=== PATIENT | female | born 1970 | race African-American/Black ===

== ENCOUNTER → 2017-06-24 | Outpatient (CLI) | payer BC ==
[2017-06-24 14:46] LABS: BASO % 1 % (0-3); EOS # 0.1 x10^3/uL (0.0-0.7); EOS % 2 % (0-3); HEMATOCRIT 24.1 % (36.0-47.0); LYMPH # 2.6 x10^3/uL (1.0-4.8); LYMPH % 41 % (24-48); MEAN CORPUSCULAR HEMOGLOBIN 16 pg (25-35); MEAN CORPUSCULAR HGB CONC 29 g/dL (31-37); MEAN CORPUSCULAR VOLUME 56 fL (79-100); MONO # 0.2 x10^3/uL (0.0-1.1); MONO % 4 % (0-9); NEUT # 3.3 x10^3uL (1.8-7.7); NEUT % 52 % (31-73); PLATELET COUNT 211 x10^3/uL (140-400); RED BLOOD COUNT 4.33 x10^6/uL (3.50-5.40); RED CELL DISTRIBUTION WIDTH 21.4 % (11.5-14.5); WHITE BLOOD COUNT 6.3 x10^3/uL (4.0-11.0)
[2017-06-24 14:50] LABS: ADD MAN DIFF? YES; HEMOGLOBIN 6.9 g/dL (12.0-15.5)
[2017-06-24 15:21] LABS: ALBUMIN 4.3 g/dL (3.4-5.0); ALBUMIN/GLOBULIN RATIO 1.2 (1.0-1.7); ALK PHOS 58 U/L (46-116); ALT (SGPT) 16 U/L (14-59); ANION GAP 12 (6-14); AST (SGOT) 14 U/L (15-37); BLOOD UREA NITROGEN 11 mg/dL (7-20); BUN/CREATININE RATIO 18 (6-20); CALCIUM 8.5 mg/dL (8.5-10.1); CARBON DIOXIDE 24 mmol/L (21-32); CHLORIDE 106 mmol/L (98-107); CREATININE 0.6 mg/dL (0.6-1.0); GFR 129.7; GLUCOSE 89 mg/dL (70-99); POTASSIUM 3.6 mmol/L (3.5-5.1); SODIUM 142 mmol/L (136-145); TOTAL BILIRUBIN 0.2 mg/dL (0.2-1.0); TOTAL PROTEIN 7.9 g/dL (6.4-8.2)
[2017-06-24 18:09] LABS: % EOS 4 % (0-5); % LYMPHS 37 % (24-48); % MONOS 6 % (0-10); % SEGS 53 % (35-66); PLT ESTIMATE ADEQUATE (ADEQUATE)
[2017-06-24 18:10] LABS: ANISOCYTOSIS MOD; HYPOCHROMIA MARKED; MICROCYTOSIS MARKED; POLYCHROMASIA SLIGHT; SCHISTOCYTES OCC
== END | disposition home or self-care (01) ==
LOC: SURGPAT 14:08
DX: Z01.818 Encounter for other preprocedural examination (principal)
CPT/HCPCS: 36415; 71046; 80053; 85007; 85025

== ENCOUNTER 2017-07-02 05:41 | Observation (INO) | payer BC ==
[2017-07-02] MEDS: IV RINGERS,LACTATED 1000ML 1,000 ML IV (06:36)
[2017-07-02] MEDS ORDERED: METHYLENE BLUE 1% 10 ML VIAL. (06:42)
[2017-07-02] MEDS ORDERED: ESTROGENS, CONJ VAGINAL CREAM 30GM TUBE. (06:42)
[2017-07-02] MEDS ORDERED: LIDOCAINE 1% PF 2 ML VIAL. ID (07:00)
[2017-07-02] MEDS ORDERED: ONDANSETRON PF 4 MG/2 ML VIAL. IV ×2 (07:00→10:00)
[2017-07-02] MEDS ORDERED: fentaNYL PF VIAL 100 MCG/2 ML VIAL IV (07:00)
[2017-07-02] MEDS ORDERED: PROCHLORPERAZINE 10 MG/2 ML VIAL. IV (07:00)
[2017-07-02] MEDS ORDERED: ROCURONIUM 50 MG/5 ML VIAL. (07:04)
[2017-07-02] MEDS ORDERED: PROPOFOL 20 ML IV (07:04)
[2017-07-02] MEDS ORDERED: SUCCINYLCHOLINE 200 MG/10 ML VIAL. (07:04)
[2017-07-02] MEDS ORDERED: LIDOCAINE 1% PF 5 ML VIAL. (07:04)
[2017-07-02] MEDS ORDERED: fentaNYL PF VIAL 100 MCG/2 ML VIAL ×2 (07:04→10:13)
[2017-07-02 07:10] LABS: NEG OBC UR NEG; POS OBC UR POS; U PREG PATIENT NEGATIVE (NEG)
[2017-07-02 07:20] LABS: BASO # 0.1 x10^3/uL (0.0-0.2); BASO % 1 % (0-3); EOS # 0.1 x10^3/uL (0.0-0.7); EOS % 2 % (0-3); HEMATOCRIT 29.7 % (36.0-47.0); HEMOGLOBIN 9.4 g/dL (12.0-15.5); LYMPH # 2.1 x10^3/uL (1.0-4.8); LYMPH % 43 % (24-48); MEAN CORPUSCULAR HEMOGLOBIN 20 pg (25-35); MEAN CORPUSCULAR HGB CONC 32 g/dL (31-37); MEAN CORPUSCULAR VOLUME 62 fL (79-100); MONO # 0.3 x10^3/uL (0.0-1.1); MONO % 5 % (0-9); NEUT # 2.4 x10^3uL (1.8-7.7); NEUT % 49 % (31-73); PLATELET COUNT 310 x10^3/uL (140-400); RED BLOOD COUNT 4.82 x10^6/uL (3.50-5.40); RED CELL DISTRIBUTION WIDTH 30.6 % (11.5-14.5); WHITE BLOOD COUNT 4.9 x10^3/uL (4.0-11.0)
[2017-07-02] MEDS: SCOPOLAMINE 1.5MG PATCH. TD (07:27)
[2017-07-02 07:31] LABS: ADD MAN DIFF? YES
[2017-07-02] MEDS ORDERED: DESFLURANE 61 TO 120 MINUTES IH (07:50)
[2017-07-02] MEDS ORDERED: FAMOTIDINE 20 MG/2 ML VIAL (07:50)
[2017-07-02] MEDS ORDERED: DEXAMETHASONE SOD PHOS 20 MG/5 ML VIAL. (07:50)
[2017-07-02] MEDS ORDERED: ONDANSETRON PF 4 MG/2 ML VIAL. (07:50)
[2017-07-02] MEDS: BUPIVACAINE MPF 0.25% 30 ML VIAL. (07:59)
[2017-07-02] MEDS ORDERED: NEOSTIGMINE 10 MG/10 ML VIAL. (08:12)
[2017-07-02] MEDS ORDERED: GLYCOPYRROLATE 1 MG/5 ML VIAL. (08:12)
[2017-07-02] MEDS ORDERED: PHENYLEPHRINE in 0.9% NACL PF 1 MG/10 ML SYRINGE. IV (08:37)
[2017-07-02] MEDS ORDERED: MAG HYDROX/ALUMINUM HYD/SIMETH 30 ML ORAL.SUSP PO (10:00)
[2017-07-02] MEDS ORDERED: diphenhydrAMINE 50 MG/ML VIAL IV (10:00)
[2017-07-02] MEDS ORDERED: NALOXONE 0.4 MG/ML VIAL. IV (10:00)
[2017-07-02] MEDS ORDERED: 0.9 % SODIUM CHLORIDE 10 ML DISP.SYRIN. IV (10:00)
[2017-07-02] MEDS ORDERED: MAGNESIUM HYDROXIDE 2,400 MG/30 ML ORAL.SUSP. PO (10:00)
[2017-07-02] MEDS ORDERED: oxyCODONE/APAP 5/325 1 TAB TABLET PO (10:00)
[2017-07-02] MEDS ORDERED: CALCIUM CARBONATE 500 MG TAB.CHEW PO (10:00)
[2017-07-02] MEDS ORDERED: LACTULOSE 20 GM/30 ML SOLUTION. PO (10:00)
[2017-07-02] MEDS ORDERED: ZOLPIDEM 5 MG TABLET. PO (10:00)
[2017-07-02] MEDS ORDERED: diphenhydrAMINE HCL 25 MG CAPSULE PO (10:00)
[2017-07-02] MEDS ORDERED: MORPHINE SULFATE 2 MG/ML DISP.SYRIN. IV (10:00)
[2017-07-02] MEDS ORDERED: SIMETHICONE 80 MG TAB.CHEW PO (10:00)
[2017-07-02] MEDS: fentaNYL PF VIAL 100 MCG/2 ML VIAL IV ×2 (10:21→11:01)
[2017-07-02 10:42] LABS: HEMATOCRIT 27.9 % (36.0-47.0); HEMOGLOBIN 8.2 g/dL (12.0-15.5); MEAN CORPUSCULAR HEMOGLOBIN 19 pg (25-35); MEAN CORPUSCULAR HGB CONC 30 g/dL (31-37); MEAN CORPUSCULAR VOLUME 64 fL (79-100); PLATELET COUNT 307 x10^3/uL (140-400); RED BLOOD COUNT 4.37 x10^6/uL (3.50-5.40); RED CELL DISTRIBUTION WIDTH 29.8 % (11.5-14.5); WHITE BLOOD COUNT 12.2 x10^3/uL (4.0-11.0)
[2017-07-02 12:38] LABS: % EOS 3 % (0-5); % LYMPHS 32 % (24-48); % MONOS 9 % (0-10); % SEGS 56 % (35-66); HYPOCHROMIA PRESENT; MICROCYTOSIS PRESENT; PLT ESTIMATE ADEQUATE (ADEQUATE)
[2017-07-02 12:39] LABS: OVALOCYTES PRESENT; POLYCHROMASIA PRESENT
[2017-07-02] MEDS: KETOROLAC 30 MG/ML INJ. IV ×2 (13:34→19:33)
[2017-07-02] MEDS: HYDROcodone/APAP 5/325MG 1 TAB TABLET PO ×2 (15:12→19:34)
[2017-07-03 05:00] LABS: ANION GAP 11 (6-14); BLOOD UREA NITROGEN 7 mg/dL (7-20); CALCIUM 7.9 mg/dL (8.5-10.1); CARBON DIOXIDE 24 mmol/L (21-32); CHLORIDE 105 mmol/L (98-107); CREATININE 0.7 mg/dL (0.6-1.0); GFR 108.5; GLUCOSE 87 mg/dL (70-99); POTASSIUM 3.6 mmol/L (3.5-5.1); SODIUM 140 mmol/L (136-145)
[2017-07-03 05:04] LABS: HEMATOCRIT 23.7 % (36.0-47.0)
[2017-07-03] MEDS: FERROUS SULFATE 325 MG TABLET. PO ×2 (08:02→09:00)
== END 2017-07-03 10:08 | disposition home or self-care (01) ==
LOC: SURG 05:41 → 3 NORTH 10:07
DX: D25.1 Intramural leiomyoma of uterus (principal); Z98.51 Tubal ligation status; D64.9 Anemia, unspecified
CPT/HCPCS: 36415; 80048; 81025; 85007; 85014; 85025; 85027; 86850; 86900; 86901; 88307; 96374; 96376; C1769; G0378; G0379; J0330; J0690; J1100; J1885; J2370; J2405; J2704; J2710; J3010; J3490; J7030; J7120; Q9968; S0028